=== PATIENT | male | born 1945 | race Caucasian/White ===

== ENCOUNTER 2016-12-21 18:15 | Inpatient (IN) | payer OTHER, BC ==
[~2016-12-21] VITALS: Ht 175.3 cm; Wt 73.8 kg
--- NOTE | ~2016-12-21 | O ---
[facility] [place] [address] OPERATIVE REPORT Name: SAVANNA TORRES Room #: 537-P ADM IN M.R.#: [id number] Admission: 12/21/16 Attend Phys: Danilo Hurtado MD Discharge: Date of : 41 Report #: [id number] THIS REPORT FOR: //name// CC: Jaxon Jc DATE OF SERVICE: 12/23/2016 PREOPERATIVE DIAGNOSIS: Left hip intertrochanteric hip fracture. POSTOPERATIVE DIAGNOSIS: Left hip intertrochanteric hip fracture. PROCEDURE: Left hip intramedullary nail. SURGEON: Jaxon Vazquez MD. COSTUME MISTRESS: KAMAR Reid. ANESTHESIA: General. DRAINS: None. TOURNIQUET TIME: Zero. ESTIMATED BLOOD LOSS: 20 mL. COMPLICATIONS: There were no complications. DESCRIPTION OF PROCEDURE: The patient brought to the operating room where he was placed under general anesthesia. Once under adequate general anesthesia, he was placed onto the fracture table. Once on the fracture table, his left lower extremity was then placed into traction. A reduction maneuver was then performed. X-ray was used to verify a satisfactory reduction and the left hip was then prepped and draped in sterile manner. A 2 cm incision proximal to the tip of the greater trochanter was then made. A curved cannulated awl was then used to enter the tip of the greater trochanter and subsequent to this, a guidewire for the intramedullary nail was then placed. An 11 mm Synthes trochanteric femoral nail was then placed down the shaft of the femur through a separate 2 cm incision utilizing the outrigger jig the guidewire and subsequently, the compression screw was placed across the fracture site. Excellent fixation was achieved. A transverse locking screw was then placed through the end of the nail. Excellent fixation and good alignment was then achieved. The wounds were irrigated copiously and closed with 2-0 Vicryl, subcutaneous tissues and jean for the skin. The wound was dressed with Xeroform, 4 x 4s, and sterile soft compressive dressing was placed. There were [facility] [address] [place] [address] OPERATIVE REPORT Name: SAVANNA TORRES Room #: 537-P [facility] IN M.R.#: [id number] Admission: 12/21/16 Attend Phys: Danilo Hurtado MD Discharge: Date of : 43 Report #: [id number] no tourniquets. There were no complications. KAMAR Reid was critical for the positioning and safe performance of the procedure. <ELECTRONICALLY SIGNED> By: Jaxon Vazquez MD 12/24/16 1323 1249 1303 Jaxon Vazquez MD /nt
--- NOTE | ~2016-12-21 | HC ---
[facility] [place] [address] CONSULTATION Name: SAVANNA TORRES Room #: 313-P [facility] IN M.R.#: [id number] Admission: 12/21/16 Attend Phys: Danilo Hurtado MD Discharge: Date of : 43 Report #: [id number] THIS REPORT FOR: //name// CC: Jaxon Jc CHIEF COMPLAINT: Left hip pain. HISTORY OF PRESENT ILLNESS: This is a 71-year-old gentleman who fell and landed on his hip at home while using a portable toilet. He complained of left lower extremity pain and shoulder pain. He apparently had a CVA approximately 9 months ago and lost the use of his left side. He still has normal sensation on his left side, however. He typically uses electric wheelchair to move. He apparently fell on Tuesday from a standing position. PAST MEDICAL HISTORY: Significant for the CVA, hypertension, hypercholesterolemia and diabetes mellitus. MEDICATIONS: Mirtazapine, metformin, Baclofen, ropinirole, enalapril maleate, rosuvastatin, calcium, cyanocobalamin and aspirin. ALLERGIES: None. SOCIAL HISTORY: Negative for alcohol use. REVIEW OF SYSTEMS: As above. PHYSICAL EXAMINATION: VITAL SIGNS: Notes a temperature of 36.5, pulse is 113, respiratory rate is 22, pulse ox to 98 and blood pressure is 111/73. EXTREMITIES: Examination of the patient's left lower extremity notes it is shortened and externally rotated. He has pain with any motion through his left lower extremity. Otherwise, neurovascularly intact. LABORATORY DATA: Laboratory studies note hemoglobin of 12.8 and an INR of 1.0. X-rays are reviewed, noting a left hip intertrochanteric hip fracture, which is displaced. IMPRESSION: Left hip intertrochanteric hip fracture. PLAN: Options were discussed at length with the patient. I will have to discuss with his as well possible intramedullary nail to the left hip. <ELECTRONICALLY SIGNED> By: Jaxon Vazquez MD 12/23/16 1105 0649 1028 Jaxon Vazquez MD /nt
--- NOTE | ~2016-12-21 | HC ---
[facility] [place] [address] CONSULTATION Name: SAVANNA TORRES Room #: 537-P [facility] IN M.R.#: [id number] Admission: 12/21/16 Attend Phys: Danilo Hurtado MD Discharge: 12/27/16 Date of : 43 Report #: [id number] THIS REPORT FOR: //name// CC: Jaxon Jc HISTORY OF PRESENT ILLNESS: The patient is a 71-year-old male who has a history of a prior hemorrhagic stroke approximately 9 months ago with residual dense left-sided weakness. He typically uses an electric wheelchair. He was able to transfer himself on and off the toilet and in and out of bed using a stand pivot transfer. The patient was performing a transfer off of a portable toilet when he unfortunately fell on to his plegic left side. He was admitted to [facility] and noted to have a left hip intertrochanteric fracture. He underwent intramedullary nailing on 12/23/2016. He is allowed weightbearing as tolerated. He has had some urinary retention with Prieto placement and starting Flomax. We are seeing him in rehabilitation medicine consultation. PAST MEDICAL HISTORY: Includes the prior stroke with dense left-sided weakness. He has a history of hypertension and diabetes mellitus type 2. MEDICATIONS: Please see the full medication listing. ALLERGIES: No known drug allergies. HABITS: Former tobacco user, quit less than one year ago. ETOH, 2 glasses of wine daily. 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 REVIEW OF SYSTEMS: Did not offer any current complaints of chest pain, shortness of breath, abdominal discomfort. He notes left lower extremity pain and indicate he does have good sensation of that left side. No other focal extremity pain complaints. PHYSICAL EXAMINATION: GENERAL: The patient is a 71-year-old white male, in no obvious distress. NEUROLOGIC: He is pleasant. Follows basic commands, conversants with tends to defer quite a bit of the conversation to his . Facies are symmetric. He might have a mild depressed left nasolabial fold. EOMs appear full. He has functional range of motion and strength of the right upper and right lower extremity without focal weakness. Left upper extremity reveal dense plegia of that left upper extremity. He has trace left elbow flexion. He appears to have some mild increased tone of that left upper extremity. Left lower extremity, hip incision with dressing. He has no volitional movement of that left lower extremity. He does; however, have good sensation of both upper and lower [facility] [address] [place] [address] CONSULTATION Name: TORRESSAVANNA Room #: 537-P DIS IN M.R.#: [id number] Admission: 12/21/16 Attend Phys: Danilo Hurtado MD Discharge: 12/27/16 Date of : 43 Report #: [id number] extremities to simultaneous stimulation. I could not detect any clonus at the left ankle. ASSESSMENT: A 71-year-old white male with the following problem list: 1. Left hip intertrochanteric fracture status post intramedullary nail 12/23/2016, allowed weightbearing as tolerated. 2. 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 3. Above cerebrovascular accident with chronic residual changes. 4. Urinary retention, starting Flomax. 5. Hypertension. 6. Diabetes mellitus type 2. PLAN: Therapy evaluations are underway. The patient is allowed weightbearing as tolerated on that left lower extremity. Goal would be to try to achieve independence with basic transfers, which he was doing previously. He appears motivated as far as working in his therapies. We will see how he does in therapy evaluations. He certainly may benefit from an acute in-hospital inpatient rehabilitation stay depending upon his progress. We will follow along with you. <ELECTRONICALLY SIGNED> By: Dayton Hernandez MD 01/03/17 1447 1427 2343 Dayton Hernandez MD /nt
[2016-12-21 18:15] VITALS: BP 111/73
[2016-12-21] MEDS ORDERED: REMERON15 MG PO (18:18)
[2016-12-21] MEDS ORDERED: LIORESAL 10 MG10 MG PO (18:19)
[2016-12-21] MEDS ORDERED: ROSUVASTATIN CA40 MG PO (18:19)
[2016-12-21] MEDS ORDERED: ENALAPRIL MALEA20 MG PO (18:19)
[2016-12-21] MEDS ORDERED: METFORMIN HCL1000 MG PO (18:19)
[2016-12-21] MEDS ORDERED: ROPINIROLE HCL0.5 MG PO (18:19)
[2016-12-21] MEDS ORDERED: VITAMIN B-12500 MCG PO (18:20)
[2016-12-21] MEDS ORDERED: ASPIR 8181 MG PO (18:20)
[2016-12-21 19:10] LABS: HEMOGLOBIN 12.8 gm/dL (14.0-18.0); MCH 31.6 pg (26.0-34.0); MCHC 34.5 g/dL (28.0-37.0); MCV 91.5 fL (80.0-100.0); RBC 4.05 mil/uL (4.50-6.00); WBC 19.8 thou/uL (4.0-11.0)
[2016-12-21 19:12] LABS: MANUAL DIFF YES
[2016-12-21 19:15] LABS: CALCIUM 9.6 mg/dL (8.5-10.1); CREATININE 1.3 mg/dL (0.6-1.3); POTASSIUM 4.3 mmol/L (3.5-5.1)
[2016-12-21 19:19] LABS: ALBUMIN 3.3 g/dL (3.4-5.0); TOTAL BILIRUBIN 0.8 mg/dL (<0.1-1.0); TOTAL PROTEIN 7.2 g/dL (6.4-8.2)
[2016-12-21 19:24] LABS: PROTIME 10.8 Seconds (9.3-11.4)
[2016-12-21 19:33] LABS: ICTOTEST (BILI CONFIRMATORY) Negative (Negative); URINE BILIRUBIN 1+ (Negative); URINE BLOOD TRACE (Negative); URINE COLOR YELLOW; URINE GLUCOSE-RANDOM* NEGATIVE (Negative); URINE KETONES TRACE (Negative); URINE LEUKOCYTES-REFLEX NEGATIVE (Negative); URINE PROTEIN (DIPSTICK) 2+ (Negative); URINE SPECIFIC GRAVITY 1.025 (1.003-1.035); URINE UROBILINOGEN 0.2 E.U./dl (0.2-1.0)
[2016-12-21 19:38] LABS: ABSOLUTE NEUTROPHILS 14.5 thou/uL (1.4-8.2); TOTAL CELL COUNT 100
[2016-12-21 19:39] LABS: LARGE PLATELETS FEW
[2016-12-21 19:40] LABS: PLATELET COUNT 134 thou/uL (150-400); PLATELET ESTIMATE SLIGHTLY DECREASED
[2016-12-21 19:43] LABS: CRYSTALS None Seen /LPF (None Seen); SQUAMOUS 0-3 Few /LPF (0-3)
[2016-12-21 19:44] LABS: HYALINE CASTS 0-3 Few /LPF (None Seen); URINE RBC 0-2 Rare /HPF (0-2); URINE WBC-REFLEX None Seen /HPF (0-5)
[2016-12-21 23:19] VITALS: BP 96/50
[2016-12-22] VITALS: BP 96/60
[2016-12-22 04:40] VITALS: BP 96/60
[2016-12-22 06:07] LABS: HEMATOCRIT 32.9 % (42.0-52.0); HEMOGLOBIN 11.1 gm/dL (14.0-18.0); MCH 31.5 pg (26.0-34.0); MCHC 33.6 g/dL (28.0-37.0); MCV 93.6 fL (80.0-100.0); RBC 3.52 mil/uL (4.50-6.00); RDW 13.1 % (10.5-14.5); WBC 10.7 thou/uL (4.0-11.0)
[2016-12-22 06:26] LABS: CREATININE 1.1 mg/dL (0.6-1.3); POTASSIUM 3.9 mmol/L (3.5-5.1)
[2016-12-22 07:46] VITALS: BP 91/60
[2016-12-22 10:40] LABS: URINE BILIRUBIN NEGATIVE (Negative); URINE BLOOD NEGATIVE (Negative); URINE COLOR YELLOW; URINE GLUCOSE-RANDOM* NEGATIVE (Negative); URINE KETONES TRACE (Negative); URINE LEUKOCYTES-REFLEX NEGATIVE (Negative); URINE PROTEIN (DIPSTICK) 1+ (Negative); URINE UROBILINOGEN 0.2 E.U./dl (0.2-1.0)
[2016-12-22 10:44] LABS: SQUAMOUS None Seen /LPF (0-3); URINE RBC None Seen /HPF (0-2); URINE WBC-REFLEX 0-5 Rare /HPF (0-5)
[2016-12-22 10:45] LABS: CASTS None Seen /LPF (None Seen); CRYSTALS None Seen /LPF (None Seen)
[2016-12-22 13:58] VITALS: BP 88/57
[2016-12-22 16:43] VITALS: BP 101/69
[2016-12-22 20:30] VITALS: BP 100/63
[2016-12-23] VITALS (8 sets, daily range): BP systolic 95–141; BP diastolic 58–86
[2016-12-23 05:07] LABS: BASOPHILS 0.5 % (0.0-2.0); EOSINOPHILS 9.9 % (0.0-3.0); HEMATOCRIT 30.3 % (42.0-52.0); HEMOGLOBIN 10.5 gm/dL (14.0-18.0); LYMPHOCYTES 18.5 % (24.0-44.0); MCHC 34.6 g/dL (28.0-37.0); MCV 92.4 fL (80.0-100.0); MONOCYTES 8.3 % (1.0-8.0); PLATELET COUNT 96 thou/uL (150-400); POLYS 62.8 % (36.0-66.0); RBC 3.27 mil/uL (4.50-6.00); RDW 12.8 % (10.5-14.5); WBC 7.9 thou/uL (4.0-11.0)
[2016-12-23 05:13] LABS: MANUAL DIFF NO
[2016-12-23 05:20] LABS: CALCIUM 8.6 mg/dL (8.5-10.1); POTASSIUM 3.8 mmol/L (3.5-5.1)
[2016-12-24 00:37] VITALS: BP 104/53
[2016-12-24 03:00] VITALS: BP 107/59
[2016-12-24 08:10] VITALS: BP 108/67
[2016-12-24 16:52] VITALS: BP 135/82
[2016-12-24 20:22] VITALS: BP 118/77
[2016-12-24 20:30] VITALS: BP 118/77
[2016-12-25 05:22] LABS: ABSOLUTE NEUTROPHILS 5.5 thou/uL (1.4-8.2); BASOPHILS 0.6 % (0.0-2.0); EOSINOPHILS 8.3 % (0.0-3.0); HEMATOCRIT 30.4 % (42.0-52.0); HEMOGLOBIN 10.3 gm/dL (14.0-18.0); LYMPHOCYTES 20.3 % (24.0-44.0); MCH 31.5 pg (26.0-34.0); MCHC 33.9 g/dL (28.0-37.0); MCV 92.8 fL (80.0-100.0); MONOCYTES 9.4 % (1.0-8.0); PLATELET COUNT 134 thou/uL (150-400); POLYS 61.4 % (36.0-66.0); RBC 3.27 mil/uL (4.50-6.00); RDW 12.5 % (10.5-14.5); WBC 8.9 thou/uL (4.0-11.0)
[2016-12-25 05:30] LABS: MANUAL DIFF NO
[2016-12-25 05:34] LABS: CALCIUM 8.3 mg/dL (8.5-10.1)
[2016-12-25 06:33] VITALS: BP 113/73
[2016-12-25 07:56] VITALS: BP 137/73
[2016-12-25 15:46] VITALS: BP 157/79
[2016-12-25 19:48] VITALS: BP 128/81
[2016-12-26 07:40] VITALS: BP 134/83
[2016-12-26 16:45] VITALS: BP 125/71
[2016-12-26 19:41] VITALS: BP 109/67
[2016-12-27 03:08] VITALS: BP 136/84
[2016-12-27 07:27] VITALS: BP 134/72
[2016-12-27] MEDS ORDERED: COLACE 100 MG100 MG PO (10:11)
[2016-12-27] MEDS ORDERED: HYDROCODONE-AP1 EAC6 PO (10:11)
[2016-12-27] MEDS ORDERED: FLOMAX0.4 MG PO (10:11)
== END 2016-12-27 16:51 | DRG 480 ==
LOC: ER 18:15 → EROBS 21:11 → 3N 21:11 → 5S 12-23 14:05
PROVIDERS: Emergency Medicine; Internal Medicine Endocrinology, Diabetes & Metabolism; Nurse Practitioner Acute Care
PROC: 0QS736Z Reposition Left Upper Femur with Intramedullary Internal Fixation Device, Percutaneous Approach (ICD-10-PCS; principal; 2016-12-23)
DX: S72.142A Displaced intertrochanteric fracture of left femur, initial encounter for closed fracture (principal); E43 Unspecified severe protein-calorie malnutrition; I69.954 Hemiplegia and hemiparesis following unspecified cerebrovascular disease affecting left non-dominant side; I10 Essential (primary) hypertension; E11.9 Type 2 diabetes mellitus without complications; E78.00 Pure hypercholesterolemia, unspecified; R33.9 Retention of urine, unspecified; D72.829 Elevated white blood cell count, unspecified; K59.00 Constipation, unspecified; E78.5 Hyperlipidemia, unspecified; Z68.24 Body mass index [BMI] 24.0-24.9, adult; Z87.891 Personal history of nicotine dependence; Z82.49 Family history of ischemic heart disease and other diseases of the circulatory system; W18.39XA Other fall on same level, initial encounter; Y93.89 Activity, other specified; Y92.89 Other specified places as the place of occurrence of the external cause; Y99.8 Other external cause status
CPT/HCPCS: 10089; 10096; 10785; 50010; 50101; 50386; 51412; 51538; 51817; 52146; 55430; 56524; 57092; 62110; 62900; 70005

== ENCOUNTER 2016-12-27 13:13 | Inpatient (IN) | payer OTHER, BC ==
[~2016-12-27] VITALS: Ht 175.3 cm; Wt 74.5 kg
--- NOTE | ~2016-12-27 | PLAN ---
[facility] [place] [address] REHAB UNIT PLAN OF CARE Name: SAVANNA TORRES Room #: 511-P ADM IN M.R.#: [id number] Admission: 12/27/16 Attend Phys: Dayton Hernandez MD Discharge: Date of : 43 Report #: [id number] THIS REPORT FOR: //name// CC: Dayton Jc DATE OF SERVICE: 12/29/2016 HISTORY OF PRESENT ILLNESS: The patient is seen back today in followup. He is in no distress. Last recorded temperature 36.9, pulse 95, respirations 14, blood pressure 124/81. The patient is in no distress. He is sleepy. He has no calf swelling. Bed to wheelchair transfers are max assist. Bed mobility is mod assist. He has been dependent for donning his underwear and socks and hose. ASSESSMENT: 1. Left hip intertrochanteric fracture status post intramedullary nail 12/23/2016, weightbearing as tolerated. 2. Premorbid dense left hemiplegia from a prior stroke approximately 9 months ago. 3. Prior CVA with chronic residual left-sided weakness. 4. Urinary retention with indwelling Prieto catheter, was started on Flomax. 5. Hypertension. 6. Diabetes mellitus. PLAN: The overall plan of care is based on the preadmission screen, post-admission physician evaluation and information garnered from therapy assessments. 1. Estimated length of stay is probably at least 2-3 weeks, potentially longer as warranted pending his progress. 2. Medical prognosis is reasonably good. 3. Anticipated interventions include the interdisciplinary acute inpatient rehabilitation program with PT and OT. Speech therapy is involved as well as he does have some dysphagia, would anticipate most of this therapy to be PT and OT, however, as we progress forward. He also has rehab nursing assisting regarding medication management, skin care prophylaxis, bowel and bladder issues and nursing education. We will have the business sales consultant physicians following as noted. 4. Anticipated functional outcomes would be for the patient to improve as far as basic transfers and ADLs to try to get back as close as possible to his prior functional levels. 5. Discharge destination would be back to the home setting with his . 6. Expected therapy by discipline includes PT, OT and speech with PT and OT 1 to 1-1/2 hours per day, speech is 1/2 to 1 hour per day each five [place] [address] REHAB UNIT PLAN OF CARE Name: SAVANNA TORRES Room #: 511-P [facility] IN ..#: [id number] Admission: 12/27/16 Attend Phys: Dayton Hernandez MD Discharge: Date of : 43 Report #: [id number] with the anticipation that speech therapy will likely taper off and be increased by more PT and OT. <ELECTRONICALLY SIGNED> By: Dayton Hernandez MD 01/03/17 1455 0800 1058 Dayton Hernandez MD /darryn
--- NOTE | ~2016-12-27 | EEG ---
[facility] [place] [address] ELECTROENCEPHALOGRAM Name: SAVANNA TORRES Room #: 511-P ADM IN M.R.#: [id number] Admission: 12/27/16 Attend Phys: Dayton Hernandez MD Discharge: Date of : 43 Report #: [id number] THIS REPORT FOR: //name// CC: Dayton Jc DATE OF SERVICE: 01/04/2017 This patient is being evaluated for left facial numbness and has a history of CVA. EEG was done by placing the electrodes by standard 10-20 system of electrode placement. Both referential and sequential montages were used for recording. Background activity in this patient's EEG is about 9-10 Hz and 40 microvolt. This is a symmetrical activity. This patient becomes drowsy and goes to sleep and that is associated with bilateral slowing and a few vertex sharp waves. Photic stimulation was unremarkable. Throughout the record, no active epileptiform activity was noticed. IMPRESSION: This patient's EEG does not demonstrate any clear-cut electrophysiological abnormality. There is some nonspecific intermixed theta range slowing on both sides. That is a nonspecific abnormalities, which can occur with drowsiness, effect of psychotropic medication, etc. Finding is mild. Thank you very much for this referral. <ELECTRONICALLY SIGNED> By: Blaze Pittman MD 01/07/17 1020 1743 1831 Blaze Pittman MD /darryn
--- NOTE | ~2016-12-27 | EKG ---
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 01/06/17 0732 8 8 Rafael Charles MD, [facility] /EPI
--- NOTE | ~2016-12-27 | H ---
[facility] [place] [address] HISTORY AND PHYSICAL Name: SAVANNA TORRES Room #: 511-P [facility] IN M.R.#: [id number] Admission: 12/27/16 Attend Phys: Dayton Hernandez MD Discharge: Date of : 43 Report #: [id number] THIS REPORT FOR: //name// CC: Dayton Jc DATE OF SERVICE: 12/28/2016 HISTORY OF PRESENT ILLNESS: The patient is a 71-year-old white male with history of prior hemorrhagic stroke approximately 9 months ago with residual dense left-sided weakness. He typically utilizes an electrical wheelchair. He was able to transfer himself on and off the toilet and in and out of bed using a stand pivot transfer. He was performing a transfer off of a portable toilet when he unfortunately fell on to his plegic left side. He was admitted to [facility] and noted to have a left hip intertrochanteric fracture. He underwent intramedullary nailing on 12/23/2016. He is allowed weightbearing as tolerated. He had some urinary retention with Prieto catheter placement and starting Flomax. His constipation resolved on the bowel regimen. He was felt to be ready and was transferred for acute in-hospital inpatient rehabilitation. PAST MEDICAL HISTORY: Includes the prior stroke with dense left-sided weakness. He has a history of hypertension and diabetes mellitus type 2. MEDICATIONS: Please see the full medication listing. ALLERGIES: No known drug allergies. HABITS: Former tobacco user, quit less than one year ago. ETOH, 2 glasses of wine daily. 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 REVIEW OF SYSTEMS: No current complaints of chest pain, shortness of breath, abdominal discomfort. He has some left lower extremity discomfort as expected. No other focal extremity pain complaints. PHYSICAL EXAMINATION: GENERAL: A 71-year-old white male in no obvious distress. VITAL SIGNS: Last recorded temperature 36.8, pulse 97, respirations 14, blood pressure 112/74. The patient was seen earlier this morning. He has the indwelling Prieto catheter. Left hip is dressed. Sleepy, but easily arouses. HEENT: Facies appeared to be symmetric. Appeared to be benign. He does have a mild depressed left nasolabial fold. CHEST: Sounded clear to auscultation. CARDIOVASCULAR: Regular rate and rhythm. [address] [address] HISTORY AND PHYSICAL Name: SAVANNA TORRES Room #: 511-P [facility] IN ..#: [id number] Admission: 12/27/16 Attend Phys: Dayton Hernandez MD Discharge: Date of : 43 Report #: [id number] ABDOMEN: Bowel sounds positive, nontender. NEUROLOGIC: He is a slender male. EXTREMITIES: He has functional range of motion and strength of the right upper and right lower extremity. Left upper extremity reveals dense plegia with trace left elbow flexion. He appears to have some mild increased tone of the left upper extremity. Left lower extremity with hip incision with dressing in place. No volitional movement of the left lower extremity. I did not test his sensation again, he did have good simultaneous sensation just stimulation when I previously saw him. Tone appears unchanged of the left ankle. There was no clonus. He is needing assistance with basic functional mobility, skills and ADLs. ASSESSMENT: A 71-year-old white male with the following problem list: 1. Left hip intertrochanteric fracture, status post intramedullary nail on 12/23/2016, weightbearing as tolerated. 2. Premorbid dense left hemiplegia from a prior stroke approximately 9 months ago. 3. Prior cerebrovascular accident with chronic residual left-sided weakness. 4. Urinary retention with indwelling Prieto catheter, was started on Flomax. 5. Hypertension. 6. Diabetes mellitus type 2. PLAN: The patient is admitted for an acute in-hospital inpatient rehabilitation stay. From a postadmission physician evaluation perspective, there are no relevant changes since the preadmission screening. Please see the above review of prior and current medical and functional conditions and comorbidities. Please see the patient's prior and current functional status. As far as risk of complications, the patient does have the multiple medical comorbidities as noted above. Initial plan of care involves the interdisciplinary acute inpatient rehabilitation program with the goal of maximizing the patient's functional independence, so that he can hopefully return back to his prior living situation. The goal would be for him to become modified independent with basic transfers, so his could again care for him in the home setting. Prognosis is reasonably good with estimated length of stay probably at least a couple weeks to possibly 3 weeks depending upon his progress and gains. Potential barriers would include his above noted medical comorbidities and decreased functional status. The patient meets diagnostic criteria for an acute in-hospital inpatient rehabilitation stay. He meets medical necessity criteria. He does have the [facility] [address] [place] [address] HISTORY AND PHYSICAL Name: SAVANNA TORRES Room #: 511-P ADM IN M.R.#: [id number] Admission: 12/27/16 Attend Phys: Dayton Hernandez MD Discharge: Date of : 43 Report #: [id number] tolerance for an acute in-hospital inpatient rehabilitation stay and he has appropriate discharge goals back to the home setting. <ELECTRONICALLY SIGNED> By: Dayton Hernandez MD 01/03/17 1447 0947 1105 Dayton Hernandez MD /nt
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
--- NOTE | ~2016-12-27 | EEG ---
[facility] [address] [place] [address] ELECTROENCEPHALOGRAM Name: SAVANNA TORRES Room #: 511-P [facility] IN M.R.#: [id number] Admission: 12/27/16 Attend Phys: Dayton Hernandez MD Discharge: Date of : 41 Report #: [id number] THIS REPORT FOR: //name// CC: Dayton Jc DATE OF SERVICE: 01/06/2017 This patient is being evaluated for the possibility of seizure. The EEG was done by placing the electrodes by standard 10-20 system of electrode placement. Both referential and sequential montages were used for recording. Background activity in this patient's EEG is about 10 Hz and 40 microvolts. It is a symmetrical activity. The patient goes to sleep, and that is associated with bilateral slowing, vertex sharp waves, as well as sleep spindles which were symmetrical. Photic stimulation was unremarkable. Throughout the record, no active epileptiform activity was noticed. IMPRESSION: This patient's EEG is within normal limits. No active epileptiform activity was noticed during this record. It might be mentioned that EEG can be normal in a patient with a seizure disorder. Thank you very much for this referral. <ELECTRONICALLY SIGNED> By: Blaze Pittman MD 01/07/17 1020 1849 39 Blaze Pittman MD /nt
[~2016-12-27 13:13] MED LIST: ASPIR 8181 MG PO; COLACE 100 MG100 MG PO; ENALAPRIL MALEA20 MG PO; FLOMAX0.4 MG PO; HYDROCODONE-AP1 EAC6 PO; LIORESAL 10 MG10 MG PO; METFORMIN HCL1000 MG PO; REMERON15 MG PO; ROPINIROLE HCL0.5 MG PO; ROSUVASTATIN CA40 MG PO; VITAMIN B-12500 MCG PO
[2016-12-27 16:56] VITALS: BP 120/75
[2016-12-28 03:50] VITALS: BP 142/81
[2016-12-28 04:21] LABS: HEMATOCRIT 28.3 % (42.0-52.0); HEMOGLOBIN 9.8 gm/dL (14.0-18.0); MCH 31.9 pg (26.0-34.0); MCHC 34.6 g/dL (28.0-37.0); MCV 92.1 fL (80.0-100.0); RBC 3.08 mil/uL (4.50-6.00)
[2016-12-28 04:32] LABS: CALCIUM 8.5 mg/dL (8.5-10.1); CREATININE 0.9 mg/dL (0.6-1.3); POTASSIUM 3.9 mmol/L (3.5-5.1)
[2016-12-28 07:42] VITALS: BP 112/74
[2016-12-28 14:50] VITALS: BP 107/69
[2016-12-28 16:00] VITALS: BP 100/50
[2016-12-28 20:00] VITALS: BP 110/60
[2016-12-29 04:27] VITALS: BP 124/81
[2016-12-29 08:33] VITALS: BP 123/77
[2016-12-29 15:33] VITALS: BP 108/65
[2016-12-30 03:38] VITALS: BP 129/76
[2016-12-30 07:48] VITALS: BP 114/78
[2016-12-30 16:12] VITALS: BP 118/64
[2016-12-31 06:30] VITALS: BP 131/64
[2016-12-31 16:00] VITALS: BP 125/79
[2017-01-01 06:35] VITALS: BP 119/71
[2017-01-01 08:25] VITALS: BP 122/54
[2017-01-01 16:00] VITALS: BP 123/62
[2017-01-02 05:39] VITALS: BP 119/49
[2017-01-02 13:49] VITALS: BP 119/60
[2017-01-02 16:00] VITALS: BP 96/65
[2017-01-03 04:00] VITALS: BP 121/70
[2017-01-03 05:43] LABS: HEMOGLOBIN 9.5 gm/dL (14.0-18.0); MCH 31.8 pg (26.0-34.0); MCHC 33.9 g/dL (28.0-37.0); RBC 2.98 mil/uL (4.50-6.00); RDW 14.3 % (10.5-14.5); WBC 7.6 thou/uL (4.0-11.0)
[2017-01-03 16:00] VITALS: BP 106/69
[2017-01-04 05:17] VITALS: BP 129/85
[2017-01-04 08:20] VITALS: BP 140/88
[2017-01-04 09:08] LABS: ABSOLUTE NEUTROPHILS 3.5 thou/uL (1.4-8.2); BASOPHILS 1.2 % (0.0-2.0); EOSINOPHILS 17.7 % (0.0-3.0); HEMATOCRIT 30.3 % (42.0-52.0); HEMOGLOBIN 10.3 gm/dL (14.0-18.0); MCH 31.6 pg (26.0-34.0); MCHC 33.9 g/dL (28.0-37.0); MONOCYTES 6.3 % (1.0-8.0); PLATELET COUNT 331 thou/uL (150-400); POLYS 50.8 % (36.0-66.0); RBC 3.26 mil/uL (4.50-6.00); RDW 13.9 % (10.5-14.5); WBC 6.8 thou/uL (4.0-11.0)
[2017-01-04 09:09] LABS: MANUAL DIFF NO
[2017-01-04 09:22] LABS: CALCIUM 9.5 mg/dL (8.5-10.1); CREATININE 0.9 mg/dL (0.7-1.3); POTASSIUM 4.2 mmol/L (3.5-5.1)
[2017-01-04 09:23] LABS: APTT 23.8 Seconds (24.5-32.8); FIBRINOGEN 417.8 mg/dL (210-360); INR 1.1; PROTIME 11.4 Seconds (9.3-11.4)
[2017-01-04 09:27] LABS: ALBUMIN 2.5 g/dL (3.4-5.0); TOTAL BILIRUBIN 0.5 mg/dL (<0.1-1.0); TOTAL PROTEIN 6.2 g/dL (6.4-8.2)
[2017-01-04 09:53] LABS: URINE BILIRUBIN NEGATIVE (Negative); URINE BLOOD TRACE (Negative); URINE COLOR YELLOW; URINE GLUCOSE-RANDOM* NEGATIVE (Negative); URINE KETONES NEGATIVE (Negative); URINE LEUKOCYTES-REFLEX NEGATIVE (Negative); URINE PROTEIN (DIPSTICK) NEGATIVE (Negative); URINE SPECIFIC GRAVITY 1.015 (1.003-1.035); URINE UROBILINOGEN 0.2 E.U./dl (0.2-1.0)
[2017-01-04 15:48] VITALS: BP 110/69
[2017-01-05 05:43] VITALS: BP 126/68
[2017-01-05 07:54] VITALS: BP 153/66
[2017-01-05 11:19] VITALS: BP 134/78
[2017-01-05 15:57] VITALS: BP 144/75
[2017-01-06 15:54] VITALS: BP 95/59
[2017-01-07 05:57] VITALS: BP 121/77
[2017-01-07 15:36] VITALS: BP 114/74
[2017-01-08 05:02] VITALS: BP 116/74
[2017-01-08 16:00] VITALS: BP 103/69
[2017-01-09 05:06] VITALS: BP 126/67
[2017-01-09 09:31] VITALS: BP 114/70
[2017-01-09 15:35] VITALS: BP 115/75
[2017-01-10 05:43] VITALS: BP 121/81
[2017-01-10 08:00] VITALS: BP 118/77
[2017-01-10 16:00] VITALS: BP 91/64
[2017-01-11 03:13] VITALS: BP 127/70
[2017-01-11 07:56] VITALS: BP 128/68
[2017-01-12 03:13] VITALS: BP 124/74
[2017-01-12 08:24] VITALS: BP 125/67
[2017-01-12 09:16] VITALS: BP 97/60
[2017-01-12] MEDS ORDERED: OXYCODONE HCL 55 MG PO (11:04)
[2017-01-12] MEDS ORDERED: GABAPENTIN 100100 MG PO (11:05)
== END 2017-01-12 13:32 | DRG 535 ==
PROVIDERS: Hospitalist; Physical Medicine & Rehabilitation; Psychiatry & Neurology Neurology
DX: S72.142A Displaced intertrochanteric fracture of left femur, initial encounter for closed fracture (principal); E43 Unspecified severe protein-calorie malnutrition; I69.951 Hemiplegia and hemiparesis following unspecified cerebrovascular disease affecting right dominant side; I10 Essential (primary) hypertension; R33.9 Retention of urine, unspecified; E11.9 Type 2 diabetes mellitus without complications; G31.84 Mild cognitive impairment of uncertain or unknown etiology; F41.9 Anxiety disorder, unspecified; K59.00 Constipation, unspecified; M17.12 Unilateral primary osteoarthritis, left knee; E78.5 Hyperlipidemia, unspecified; N40.0 Benign prostatic hyperplasia without lower urinary tract symptoms; R20.0 Anesthesia of skin; W18.39XA Other fall on same level, initial encounter; Z87.891 Personal history of nicotine dependence; Z79.82 Long term (current) use of aspirin; Z79.899 Other long term (current) drug therapy; Y93.89 Activity, other specified; Y92.89 Other specified places as the place of occurrence of the external cause; Y99.8 Other external cause status; Z82.49 Family history of ischemic heart disease and other diseases of the circulatory system
CPT/HCPCS: 10112

== ENCOUNTER 2017-09-24 12:10 | Inpatient (IN) | payer OTHER ==
[~2017-09-24] VITALS: Ht 175.3 cm; Wt 59.0 kg
--- NOTE | ~2017-09-24 | EKG ---
[address] [place] [address] ELECTROCARDIOGRAM REPORT Name: SAVANNA TORRES Room #: 411-P [facility] M.R.#: [id number] Admission: 09/24/17 Attend Phys: Vanesa Gallegos Discharge: Date of : 43 Report #: [id number] THIS REPORT FOR: //name// [facility] ED Test Date: 2017-09-24 Test Time: 12:20:44 Pat Name: SAVANNA TORRES Department: Room: 411 P Gender: M Director Information Security: CHAPARRITA : 1945 Requested By: Lucy Tarango Order Number: [id number] MD: Nicholas Robles Measurements Intervals [place] Rate: 68 P: -62 IA: 244 QRS: -83 QRSD: 140 T: 70 QT: 447 QTc: 476 Interpretive Statements Sinus or ectopic atrial rhythm Prolonged IA interval RBBB and LAFB Compared to ECG 01/04/2017 08:19:34 No change Electronically Signed On 09-25-2017 9:42:52 LAMINATION MACHINE OPERATOR by Nicholas Robles [email or web address] <ELECTRONICALLY SIGNED> By: Nicholas Robles MD 09/25/17 0942 1220 1220 Nicholas Robles MD /KARISHMA
[~2017-09-24 12:10] MED LIST changes: +GABAPENTIN 100100 MG PO; +OXYCODONE HCL 55 MG PO
[2017-09-24 12:12] VITALS: BP 99/64
[2017-09-24] MEDS ORDERED: BENICAR20 MG PO (12:22)
[2017-09-24] MEDS ORDERED: TYLENOL325 MG PO (12:23)
[2017-09-24] MEDS ORDERED: VALPROIC ACID250 MG PO (12:25)
[2017-09-24] MEDS ORDERED: PROZAC10 MG PO (12:27)
[2017-09-24 13:32] LABS: ABSOLUTE NEUTROPHILS 5.9 thou/uL (1.4-8.2); BASOPHILS 0.5 % (0.0-2.0); EOSINOPHILS 2.9 % (0.0-3.0); HEMATOCRIT 41.5 % (42.0-52.0); HEMOGLOBIN 14.3 gm/dL (14.0-18.0); LYMPHOCYTES 17.3 % (24.0-44.0); MCH 32.2 pg (26.0-34.0); MCHC 34.3 g/dL (28.0-37.0); MCV 93.8 fL (80.0-100.0); MONOCYTES 10.5 % (1.0-8.0); POLYS 68.8 % (36.0-66.0); RBC 4.43 mil/uL (4.50-6.00); RDW 14.7 % (10.5-14.5); WBC 8.5 thou/uL (4.0-11.0)
[2017-09-24 13:40] LABS: CALCIUM 9.5 mg/dL (8.5-10.1); CREATININE 1.3 mg/dL (0.7-1.3); MAGNESIUM 2.3 mg/dL (1.8-2.4); POTASSIUM 4.3 mmol/L (3.5-5.1)
[2017-09-24 13:53] LABS: PLATELET COUNT 85 thou/uL (150-400)
[2017-09-24 15:13] LABS: URINE BILIRUBIN 1+ (Negative); URINE BLOOD 3+ (Negative); URINE CLARITY CLEAR; URINE COLOR YELLOW; URINE GLUCOSE-RANDOM* NEGATIVE (Negative); URINE KETONES NEGATIVE (Negative); URINE LEUKOCYTES-REFLEX NEGATIVE (Negative); URINE NITRITE-REFLEX NEGATIVE (Negative); URINE PROTEIN (DIPSTICK) 2+ (Negative); URINE SPECIFIC GRAVITY 1.025 (1.005-1.035)
[2017-09-24 15:15] LABS: ICTOTEST (BILI CONFIRMATORY) Negative (Negative)
[2017-09-24 15:20] LABS: HYALINE CASTS 0-3 Few /LPF (None Seen); SQUAMOUS None Seen /LPF (0-3)
[2017-09-24 15:21] LABS: AMORPHOUS URATES Moderate /LPF (None Seen); BACTERIA-REFLEX 1-9 Few /HPF (None Seen); URINE WBC-REFLEX None Seen /HPF (0-5)
[2017-09-24 16:51] VITALS: BP 92/58
[2017-09-24 17:20] VITALS: BP 99/66
[2017-09-24 17:33] VITALS: BP 98/57
[2017-09-24 20:00] VITALS: BP 100/69
[2017-09-25 04:00] VITALS: BP 91/60
[2017-09-25 08:00] VITALS: BP 93/62
[2017-09-25 16:18] VITALS: BP 85/49
[2017-09-25 21:20] VITALS: BP 90/60
[2017-09-26 05:48] VITALS: BP 96/64
[2017-09-26 09:43] VITALS: BP 88/53
[2017-09-26 20:29] VITALS: BP 100/58
[2017-09-27 03:15] VITALS: BP 110/68
[2017-09-27 08:21] VITALS: BP 114/65
[2017-09-27 12:19] LABS: TSH 2.237 uIU/mL (0.358-3.740)
[2017-09-27 16:56] VITALS: BP 100/67
[2017-09-27 19:15] VITALS: BP 115/67
[2017-09-28 04:10] VITALS: BP 105/70
[2017-09-28 08:00] VITALS: BP 132/84
[2017-09-28 12:29] LABS: ALBUMIN 1.8 g/dL (3.4-5.0); CALCIUM 8.3 mg/dL (8.5-10.1); CREATININE 0.7 mg/dL (0.7-1.3); MAGNESIUM 1.6 mg/dL (1.8-2.4); POTASSIUM 4.2 mmol/L (3.5-5.1); TOTAL BILIRUBIN 0.2 mg/dL (<0.1-1.0); TOTAL PROTEIN 4.1 g/dL (6.4-8.2)
[2017-09-28 14:22] LABS: HEMATOCRIT 35.5 % (42.0-52.0); MCH 32.5 pg (26.0-34.0); MCHC 33.9 g/dL (28.0-37.0); MCV 95.9 fL (80.0-100.0); RBC 3.7 mil/uL (4.50-6.00); RDW 15.3 % (10.5-14.5); WBC 5.3 thou/uL (4.0-11.0)
[2017-09-28 16:00] VITALS: BP 95/59
[2017-09-28 20:00] VITALS: BP 106/70
[2017-09-29 04:31] VITALS: BP 139/81
[2017-09-29 08:53] VITALS: BP 120/76
[2017-09-29 10:47] LABS: BASOPHILS 0.7 % (0.0-2.0); EOSINOPHILS 7.5 % (0.0-3.0); HEMOGLOBIN 11.9 gm/dL (14.0-18.0); LYMPHOCYTES 26.7 % (24.0-44.0); MCH 32.8 pg (26.0-34.0); MCHC 34.1 g/dL (28.0-37.0); MONOCYTES 8.6 % (1.0-8.0); POLYS 56.5 % (36.0-66.0); RBC 3.64 mil/uL (4.50-6.00); RDW 15.6 % (10.5-14.5); WBC 5.3 thou/uL (4.0-11.0)
[2017-09-29 10:49] LABS: CALCIUM 8.5 mg/dL (8.5-10.1); CREATININE 0.7 mg/dL (0.7-1.3); MAGNESIUM 1.9 mg/dL (1.8-2.4); POTASSIUM 3.8 mmol/L (3.5-5.1)
[2017-09-29 10:51] LABS: PLATELET COUNT 85 thou/uL (150-400)
[2017-09-29 17:12] VITALS: BP 109/69
[2017-09-29 20:00] VITALS: BP 117/76
[2017-09-30 04:00] VITALS: BP 132/83
[2017-09-30 08:00] VITALS: BP 138/86
== END 2017-09-30 16:20 | DRG 689 ==
LOC: ER 12:10 → EROBS 16:40 → 4N 17:22
PROVIDERS: Emergency Medicine; Family Medicine; Registered Nurse
DX: N39.0 Urinary tract infection, site not specified (principal); E43 Unspecified severe protein-calorie malnutrition; I69.354 Hemiplegia and hemiparesis following cerebral infarction affecting left non-dominant side; Z68.1 Body mass index [BMI] 19.9 or less, adult; E86.0 Dehydration; M62.84 Sarcopenia; R62.7 Adult failure to thrive; E78.00 Pure hypercholesterolemia, unspecified; I10 Essential (primary) hypertension; E11.9 Type 2 diabetes mellitus without complications; F32.9 Major depressive disorder, single episode, unspecified; I95.9 Hypotension, unspecified; D69.6 Thrombocytopenia, unspecified; R74.0 Nonspecific elevation of levels of transaminase and lactic acid dehydrogenase [LDH]; Z87.81 Personal history of (healed) traumatic fracture; Z87.891 Personal history of nicotine dependence; Z79.899 Other long term (current) drug therapy; Z82.49 Family history of ischemic heart disease and other diseases of the circulatory system

== ENCOUNTER 2019-05-30 00:01 | Emergency (ER) | payer OTHER ==
[~2019-05-30] VITALS: Ht 175.3 cm; Wt 86.6 kg
[~2019-05-30 00:01] MED LIST changes: +BENICAR20 MG PO; +PROZAC10 MG PO; +TYLENOL325 MG PO; +VALPROIC ACID250 MG PO
[2019-05-30] MEDS ORDERED: COZAAR 25 MG TA25 M1 PO (00:48)
[2019-05-30] MEDS ORDERED: ARTIFICIAL TEAR15 M6 OPHTHALMIC (00:50)
[2019-05-30] MEDS ORDERED: VICKS VAPORUB O50 GM EPIDURAL (00:51)
[2019-05-30] MEDS ORDERED: MUCINEX600 MG PO (00:58)
[2019-05-30] MEDS ORDERED: CLARITIN10 MG PO (00:59)
[2019-05-30] MEDS ORDERED: FLONASE 0.05%50 MCG NASAL (01:00)
[2019-05-30] MEDS ORDERED: IBUPROFEN 200200 M1 PORT (01:15)
[2019-05-30] MEDS ORDERED: VITAMIN B-12500 MCG PO (01:15)
[2019-05-30] MEDS ORDERED: HURRICAINE TOP (01:17)
[2019-05-30] MEDS ORDERED: DOXYCYCLINE 10100 MG PO (01:18)
[2019-05-30 03:43] VITALS: BP 127/85
== END 2019-05-30 03:44 | disposition home or self-care (01) ==
LOC: ER 00:01
DX: S70.02XA Contusion of left hip, initial encounter (principal); S40.012A Contusion of left shoulder, initial encounter; R60.9 Edema, unspecified; E78.00 Pure hypercholesterolemia, unspecified; I10 Essential (primary) hypertension; E11.9 Type 2 diabetes mellitus without complications; Z86.73 Personal history of transient ischemic attack (TIA), and cerebral infarction without residual deficits; Z87.891 Personal history of nicotine dependence; W01.0XXA Fall on same level from slipping, tripping and stumbling without subsequent striking against object, initial encounter; Y93.89 Activity, other specified; Y92.10 Unspecified residential institution as the place of occurrence of the external cause; Y99.8 Other external cause status

== ENCOUNTER → 2019-07-06 | Outpatient (CLI) | payer OTHER ==
[~2019-07-06] MED LIST changes: +ARTIFICIAL TEAR15 M6 OPHTHALMIC; +CLARITIN10 MG PO; +COZAAR 25 MG TA25 M1 PO; +DOXYCYCLINE 10100 MG PO; +FLONASE 0.05%50 MCG NASAL; +HURRICAINE TOP; +IBUPROFEN 200200 M1 PORT; +MUCINEX600 MG PO; +VICKS VAPORUB O50 GM EPIDURAL
== END ==
LOC: CAT 12:57
DX: L03.116 Cellulitis of left lower limb (principal); M16.12 Unilateral primary osteoarthritis, left hip

== ENCOUNTER 2020-04-28 20:00 | Inpatient (IN) | payer OTHER ==
[~2020-04-28] VITALS: Ht 175.3 cm; Wt 64.0 kg
[2020-04-28 20:03] VITALS: BP 88/58
[2020-04-28 21:25] LABS: HEMATOCRIT 40.4 % (42.0-52.0); HEMOGLOBIN 13.4 gm/dL (14.0-18.0); MCHC 33.2 g/dL (28.0-37.0); MCV 96.3 fL (80.0-100.0); PLATELET COUNT 233 thou/uL (150-400); RBC 4.19 mil/uL (4.50-6.00); RDW 13.3 % (10.5-14.5); WBC 31.7 thou/uL (4.0-11.0)
[2020-04-28 21:35] LABS: ANION GAP 11 mmol/L (7-16); BUN 31 mg/dL (7-18); CALCIUM 9.3 mg/dL (8.5-10.1); CHLORIDE 104 mmol/L (98-107); CO2 25 mmol/L (21-32); CREATININE 1.8 mg/dL (0.7-1.3); GLUCOSE 109 mg/dL (74-106); POTASSIUM 5.8 mmol/L (3.5-5.1); SODIUM 140 mmol/L (136-145)
[2020-04-28 21:45] LABS: TROPONIN-I <0.06 ng/mL (<0.06)
[2020-04-28 23:03] LABS: ABSOLUTE NEUTROPHILS 29.8 thou/uL (1.4-8.2); PLATELET ESTIMATE NORMAL
[2020-04-29 02:48] LABS: URINE BILIRUBIN 1+ (Negative); URINE BLOOD 2+ (Negative); URINE CLARITY SL CLOUDY; URINE COLOR YELLOW; URINE GLUCOSE-RANDOM* NEGATIVE (Negative); URINE KETONES 1+ (Negative); URINE LEUKOCYTES-REFLEX NEGATIVE (Negative); URINE NITRITE-REFLEX NEGATIVE (Negative); URINE PROTEIN (DIPSTICK) 1+ (Negative); URINE SPECIFIC GRAVITY 1.025 (1.005-1.035)
[2020-04-29 03:03] LABS: BACTERIA-REFLEX 1-9 Few /HPF (None Seen); CELLULAR CASTS 0-3 Few /LPF (None Seen); COARSE GRANULAR CASTS 0-3 Few /LPF (None Seen); HYALINE CASTS 0-3 Few /LPF (None Seen); SQUAMOUS 4-10 Moderate /LPF (0-3); URINE WBC-REFLEX 0-5 Rare /HPF (0-5)
[2020-04-29 04:40] LABS: HEMATOCRIT 38.6 % (42.0-52.0); HEMOGLOBIN 12.5 gm/dL (14.0-18.0); MCH 31.7 pg (26.0-34.0); MCHC 32.5 g/dL (28.0-37.0); MCV 97.4 fL (80.0-100.0); RBC 3.96 mil/uL (4.50-6.00); RDW 13.6 % (10.5-14.5); WBC 30.3 thou/uL (4.0-11.0)
[2020-04-29 04:44] LABS: CALCIUM 7.8 mg/dL (8.5-10.1); CREATININE 1.7 mg/dL (0.7-1.3); MAGNESIUM 1.4 mg/dL (1.8-2.4); POTASSIUM 5.3 mmol/L (3.5-5.1)
[2020-04-29 07:36] VITALS: BP 98/54
[2020-04-29 11:15] VITALS: BP 82/50
[2020-04-29 11:35] VITALS: BP 92/55
--- NOTE | 2020-04-29 13:26 | NUR ---
INITIAL ASSESSMENT: AIDAN reviewed chart and spoke with nursing. Pt was admitted from [facility] due to pneumonia/sepsis. Pt placed in Enhanced Isolation to r/o COVID-19. Pt is on IV abx and on O2. AIDAN spoke with Liliana at [facility], who states pt has tested negative twice at [facility]. Pt's test results are pending. AIDAN spoke with pt's , Sharon, via phone. Introduced role of AIDAN. Pt has lived at [facility] since September of 2017. 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 Pt is normally w/c bound at the facility and is able to stand and pivot transfer with 2 people assisting with a gait belt. Pt is not normally on O2 at the nursing facility. Plan is for pt to return to [facility] when medically stable. Pt would benefit from therapy evals when able to participate. AIDAN faxed clinical info to [facility] for review. AIDAN is following to assist as needed with discharge planning.
[2020-04-29 15:22] VITALS: BP 108/51
[2020-04-29 15:34] VITALS: BP 96/47
--- NOTE | 2020-04-29 16:03 | NUR ---
ASSUMED CARE APPROX 0700. ASSESSMENTS CHARTED AND VSS. SBP STABLE IN 90'S. FLUIDS INFUSING PER ORDERS. PT DENIES ACUTE PAIN. PT DENIES CHEST PAIN. PT ON 2LNC W/ NO SIGNS OF DISTRESS NOTED. PASSING FLATUS, BUT NO BM IN A FEW DAYS PER PT. WILL CONTACT DR. ESQUIVEL.
--- NOTE | 2020-04-29 18:02 | NUR ---
PT COVID RESULTS NEGATIVE. PT TO BE RESWABBED FOR COVID PER MARCIA ISRAEL.
[2020-04-29 19:39] VITALS: BP 93/58
[2020-04-30 00:07] LABS: GLYCOHEMOGLOBIN (HGB A1C) 5.4 % (4.8-5.6)
--- NOTE | 2020-04-30 00:13 | NUR ---
PT IS VERY SOFT SPOKEN, IT WAS DIFFICULT TO SPEAK WITH THE PATIENT AT THIS TIME. AT THE BEGINNING OF THE SHIFT THE TELE MONITOR APPEARED TO RUN A AFIB RHYTHM SO EKG WAS ORDERED, THE EKG SHOWED THAT THERE WEREN'T ANY AFIB PRESENT AT THIS TIME. PT VERBALIZED PAIN AT THE SITE OF R HEEL, PER REQUEST BOTH LOWER LEGS HAVE BEEN ELEVATED AND NOT TOUCHING THE BED. PT'S LUNG SOUNDS ARE SIMILAR, PT IS STILL RUNNING A LOWER BLOOD PRESSUER AT SBP <100, PT IS ABLE TO TURN SELF IN BED; THOUGH HE IS VERY WEAK. PT IS ABLE TO CALL FOR HELP APPROPERIATELY. PT IS STILL RUNNING NS AT 80ML/HR AND ABX. EKG PRESENTED RBBB/LAFB/ECTOPIC ATRIAL RHYTHM
[2020-04-30 01:20] VITALS: BP 110/71
[2020-04-30 03:52] VITALS: BP 111/75
[2020-04-30 05:14] LABS: CALCIUM 8.9 mg/dL (8.5-10.1); CREATININE 1.3 mg/dL (0.7-1.3)
[2020-04-30 06:08] LABS: HEMATOCRIT 36.6 % (42.0-52.0); HEMOGLOBIN 11.9 gm/dL (14.0-18.0); MCH 31.6 pg (26.0-34.0); MCHC 32.4 g/dL (28.0-37.0); MCV 97.6 fL (80.0-100.0); RBC 3.75 mil/uL (4.50-6.00); RDW 13.2 % (10.5-14.5); WBC 28.6 thou/uL (4.0-11.0)
[2020-04-30 07:42] VITALS: BP 110/72
--- NOTE | 2020-04-30 07:51 | EKG ---
[facility] [place] [address] ELECTROCARDIOGRAM REPORT Name: SAVANNA TORRES Room #: 350-P ADM IN M.R.#: [id number] Admission: 04/28/20 Attend Phys: Deepak Garcia MD Discharge: Date of : 41 Report #: [id number] THIS REPORT FOR: cc: Los Jc,Rafael Davis MD [facility] ~ THIS REPORT FOR: //name// [facility] ED Test Date: 2020-04-28 Test Time: 20:58:18 Pat Name: SAVANNA TORRES Department: Room: 350 Gender: M Purchasing Engineer: no : 1945 Requested By: Jerry Schneider Order Number: [id number] MD: Rafael Charles Measurements Intervals [place] Rate: 101 P: -81 OR: 226 QRS: -60 QRSD: 134 T: 14 QT: 344 QTc: 446 Interpretive Statements Sinus tachycardia Prolonged OR interval Nonspecific IVCD with LAD Baseline wander in lead(s) V2 Compared to ECG 09/24/2017 12:20:44 No significant change was found Electronically Signed On 04-30-2020 7:51:27 CDT by Rafael Charles [email or web address] <ELECTRONICALLY SIGNED> By: Rafael Charles MD, FAC 04/30/20 0751 57 57 Rafael Charles MD, FAC /EPI
--- NOTE | 2020-04-30 08:02 | EKG ---
[facility] [place] [address] ELECTROCARDIOGRAM REPORT Name: SAVANNA TORRES Room #: 350-P ADM IN M.R.#: [id number] Admission: 04/28/20 Attend Phys: Deepak Garcia MD Discharge: Date of : 43 Report #: [id number] THIS REPORT FOR: cc: Los Jc,Los Moseely,Rafael Campos MD [facility] ~ THIS REPORT FOR: //name// [facility] Test Date: 2020-04-29 Test Time: 21:49:50 Pat Name: SAVANNA TORRES Department: Room: 350 P Gender: M Cow Tender: CARYL : 1945 Requested By: Anali Richardson Order Number: [id number] MD: Rafael Charles Measurements Intervals [place] Rate: 90 P: 9 OH: 230 QRS: -71 QRSD: 132 T: 31 QT: 404 QTc: 495 Interpretive Statements Sinus rhythm Sinus pause Prolonged [place] interval Nonspecific IVCD with LAD Compared to ECG 04/28/2020 20:58:18 No significant change was found Electronically Signed On 04-30-2020 8:02:45 CDT by Rafael Charles [email or web address] <ELECTRONICALLY SIGNED> By: Rafael Charles MD, [facility] 04/30/20 0802 48 48 Rafael Charles MD, [facility] /EPI
[2020-04-30 11:30] VITALS: BP 122/69
--- NOTE | 2020-04-30 13:49 | EKG ---
[facility] [place] [address] ELECTROCARDIOGRAM REPORT Name: SAVANNA TORRES Room #: 350-P ADM IN M.R.#: [id number] Admission: 04/28/20 Attend Phys: Deepak Garcia MD Discharge: Date of : 41 Report #: [id number] THIS REPORT FOR: cc: Los Jc Steven F. DO Couchonnal, Luis F. MD ~ THIS REPORT FOR: //name// [facility] Test Date: 2020-04-29 Test Time: 21:50:27 Pat Name: SAVANNA TORRES Department: Room: 350 P Gender: M Topographic Computator: CARYL : 1945 Requested By: Deepak Garcia Order Number: [id number] MD: Angel Dupont Measurements Intervals [place] Rate: 94 P: -24 MN: 223 QRS: -71 QRSD: 132 T: 34 QT: 395 QTc: 495 Interpretive Statements Sinus rhythm Prolonged MN interval Nonspecific IVCD with LAD Compared to ECG 04/29/2020 21:49:50 Electronically Signed On 04-30-2020 13:49:11 CDT by Angel Dupont [email or web address] <ELECTRONICALLY SIGNED> By: Angel Dupont MD 04/30/20 1349 49 49 Angel Dupont MD /EPI
[2020-04-30 15:34] VITALS: BP 114/70
--- NOTE | 2020-04-30 15:40 | NUR ---
AIDAN reviewed chart and spoke with nursing and attending physiican. Pt has had two negative COVID tests. Pt will transfer off of 3W when a bed becomes available. Pt is afebrile. Remains on O2 and IV abx. AIDAN spoke with DELPHINE Palomares at [facility], to provide update. AIDAN spoke with pt's via phone to provide update. Pt's is anxiously awaiting pt to transfer off of 3W, so she can come visit pt. She has not seen him since the visitor restrictions were put into place at the nursing facility. Pt's asked about pt's son coming to visit from [place]. AIDAN explained that the visitor policy is that pt can only have one designated visitor per hospital stay. Pt's asked who to speak with to see if they can make an exception. AIDAN provided pt's with main hospital number and to discuss with distribution warehouse manager. AIDAN updated distribution warehouse manager. AIDAN is following to assist as needed with discharge planning.
--- NOTE | 2020-04-30 16:55 | NUR ---
ASSUMED CARE OF PT AT 0700. PT COMPLAINS OF BACK PAIN AND PAIN TO MEATUS FROM HERNANDEZ. HERNANDEZ NOTED TO BE LEAKING. INSTRUCTED TO CHANGE BY PHYSICIAN. AFTER EXCHANGING FOR SAME SIZE HERNANDEZ - HERNANDEZ STILL LEAKING. NOW PATIENT SAYS HE IS UNABLE TO TOLERATE ANOTHER HERNANDEZ PLACEMENT - WILLING TO TRY AGAIN LATER TONIGHT. DC PRECAUTIONS PER ID. ANTICIPATE TRANSFER PENDING BED AVAILABILITY.
[2020-04-30 20:19] VITALS: BP 123/73
[2020-05-01 03:27] VITALS: BP 108/70
--- NOTE | 2020-05-01 03:37 | NUR ---
ASSUMED PT CARE AT 1900. PT IS A&OX4 TONIGHT. C/O PAIN TO CATHETER INSERTION SITE, PT IS REFUSING TO HAVE A NEW ONE PLACED AT THIS TIME. URINE IS BLOOD TINGED, BUT HAS GOOD OUTPUT. PT OCCASSIONALLY REFUSING Q2 TURNS, C/O OF BOTTOM BEING SORE AND FINALLY ALLOWED TO BE TURNED FULLY ON NEW SIDE, BARRIER CREAM APPLIED. C/O RESTLESS LEGS EARLIER, GOT REQUIP STARTED FOR AM. FLUIDS & ANTIBIOTICS INFUSING PER ORDER. PT ANTICIPATING TRANSFER HOPEFULLY TOMORROW. WILL CONTINUE TO MONITOR.
[2020-05-01 05:53] LABS: HEMATOCRIT 36.8 % (42.0-52.0); MCH 32.2 pg (26.0-34.0); MCHC 32.7 g/dL (28.0-37.0); MCV 98.5 fL (80.0-100.0); RBC 3.74 mil/uL (4.50-6.00); RDW 13.8 % (10.5-14.5); WBC 22.8 thou/uL (4.0-11.0)
[2020-05-01 05:58] LABS: CALCIUM 8.5 mg/dL (8.5-10.1); POTASSIUM 4.4 mmol/L (3.5-5.1)
[2020-05-01 07:52] VITALS: BP 119/90
[2020-05-01 08:42] VITALS: BP 112/67
--- NOTE | 2020-05-01 13:15 | NUR ---
AIDAN reviewed chart and spoke with nursing. Pt has had two negative COVID tests and transferred to 4W from 3W earlier today. AIDAN spoke with pt's via phone to provide update. Pt's states that their son will be visiting pt tomorrow. Pt's asked about additional visitors. SW explained that pt's are allowed one designated visitor for the duration of the hospital stay. Pt's verbalized understanding. SW updated [facility], who states they will require an additonal/updated COVID test prior to discharge. Pt's last negative test was on 04/29. SW updated attending physician to request a COVID test to be ordered tomorrow. Plan is for pt to return to [facility] when medically stable. AIDAN is following to assist as needed with discharge planning.
[2020-05-01 16:24] VITALS: BP 120/75
--- NOTE | 2020-05-01 20:06 | NUR ---
Pt transfered from [facility] per bed at 0845 in stable condition.Assessment completed. vss.Pt appeared to be needy and calls out at alltimes.Emotional support and reassurance given as needed.Pt c/o lower back pain. Hydrocodone given as ordered with relief.Assisted pt with feeding. Fair appetite noted. Pt c/o sarmiento cath irritation and wanted it out.Dr Garcia notified,order noted. Sarmiento cath dc'd later this evening around 1700.Will continue to monitor.
[2020-05-01 20:30] VITALS: BP 126/83
--- NOTE | 2020-05-02 03:05 | NUR ---
patient aox4 makes needs known. patient turned q 2 hours. patient request muscle rub and sleeping meds called college scouting coordinator new orders written. patient had blood in the urine x2 college scouting coordinator notified d/t patient pulling off catheter and causing truma order to monitor patient and notify in the am if bleeding dont stop. patient in bed asleep no s/s of pain or discomfort. fall precaution in place. patient in bed asleep at this time breathing regular and unlaboured.
[2020-05-02 08:25] VITALS: BP 131/80
[2020-05-02 12:29] LABS: ABSOLUTE NEUTROPHILS 14.5 thou/uL (1.4-8.2); BASOPHILS 0.2 % (0.0-2.0); HEMATOCRIT 39.3 % (42.0-52.0); HEMOGLOBIN 12.8 gm/dL (14.0-18.0); LYMPHOCYTES 5.7 % (24.0-44.0); MCH 31.9 pg (26.0-34.0); MCHC 32.4 g/dL (28.0-37.0); MCV 98.4 fL (80.0-100.0); MONOCYTES 3.9 % (1.0-8.0); PLATELET COUNT 198 thou/uL (150-400); POLYS 90.2 % (36.0-66.0); RDW 13.8 % (10.5-14.5); WBC 16.1 thou/uL (4.0-11.0)
[2020-05-02 12:38] LABS: CALCIUM 8.9 mg/dL (8.5-10.1); CREATININE 0.8 mg/dL (0.7-1.3); POTASSIUM 4.4 mmol/L (3.5-5.1)
--- NOTE | 2020-05-02 14:07 | NUR ---
FAXED CLINICAL UPDATE TO [facility] SPOKE WITH SARABJIT IN ADM SHE RECEIVED UPDATE ALSO LET HER KNOW THAT PT SHOULD DC TOMORROW SHE WILL NOTIFY THE UNIT THAT PT WILL BE ON. IF PT DISCHARGES OVER WEEKEND PLEASE FAX TO [phone] AND CALL [phone] TO SCHEDULE TRANSPORT.
--- NOTE | 2020-05-02 15:24 | NUR ---
CARE TEAM INDICATED THAT PT WILL LIKELY BE MEDICALLY STABLE TO DC BACK TO [facility] TOMORROW SATUDAY 05/03/20. PT'S SPOUSE WOULD PREFER TRANSPORT BE ARRANGED AROUND 1400 IF POSSIBLE VANGIE PT'S SON FROM OUT OF TOWN CAN VISIT PT IN EARLY AM. CLINICAL UPDATED HAD BEEN SENT TO [facility] AND THEY WERE NOTIFIED OF ANTICIPATED DC TOMORROW. PLEASE CONTACT TO ARRANGE TRANSPORT AND FAX ORDERS TO . CALL REPORT TO .
[2020-05-02 16:28] VITALS: BP 120/78
--- NOTE | 2020-05-02 20:17 | NUR ---
Assumed patient care at 0715. Vital signs stable, LSCTA, BS x's 4, ABD soft and non-tender, skin is clean, warm, dry and intact. Patient requested and received Hydrocodone 5/325mg po at 0951 for "level ten" bilateral shoulder pain. He reported minimal relief from this but, did not appear to be in anymore pain. Son, Lon is in town from [place]. He visited his dad for quite awhile today. Patient has been smiling, has been resting quietly with his eyes closed since he left. Son is new Designated Visitor, as he stated "my mom cant come to see him right now." Son is to visit at approximately 0900 tomorrow. Report given to on-coming nurse.
[2020-05-02 20:45] VITALS: BP 127/84
--- NOTE | 2020-05-03 03:14 | NUR ---
PATIENT AOX4 MAKES NEEDS KNOWN. PATIENT USES URINAL. URINE IS YELLOW IN COLOR NO ODOR. PATIENT TURNED Q 2 HOURS. PATIENT ENCOURAGED FLUIDS.PAIN CONTROLLED THIS SHIFT.PATIENT IN BED ASLEEP AT THIS TIME BREATHING REGULAR AND UNLABOURED.
[2020-05-03 08:18] VITALS: BP 148/88
[2020-05-03 11:12] LABS: BASOPHILS 0.1 % (0.0-2.0); EOSINOPHILS 0.1 % (0.0-3.0); HEMATOCRIT 37.2 % (42.0-52.0); HEMOGLOBIN 12.3 gm/dL (14.0-18.0); MCH 32.4 pg (26.0-34.0); MCV 98.1 fL (80.0-100.0); MONOCYTES 6.9 % (1.0-8.0); PLATELET COUNT 192 thou/uL (150-400); POLYS 86.9 % (36.0-66.0); RBC 3.79 mil/uL (4.50-6.00); RDW 13.8 % (10.5-14.5); WBC 10.4 thou/uL (4.0-11.0)
[2020-05-03 11:19] LABS: CALCIUM 8.6 mg/dL (8.5-10.1); CREATININE 0.9 mg/dL (0.7-1.3); POTASSIUM 4.1 mmol/L (3.5-5.1)
[2020-05-03 15:44] VITALS: BP 149/83
--- NOTE | 2020-05-03 19:47 | NUR ---
Assumed pt care at 7am.Assessment completed.vss. Dr Garcia here early this shift infromed pt that he will be staying in hospital till tuesday before dc to [facility] home.Family and [facility] facility informed.Pt c/o bilateral shoulder pain and hydrocodone given as ordered with relief.Pt frequently calls out but sometimes forgetful when asked for needs.Assisted with feeding at all meals,but pt has poor appetite.It appeared that he hate pureed diet but loves pudding.Report off to joaquin rn.
[2020-05-03 21:44] VITALS: BP 151/100
--- NOTE | 2020-05-04 05:27 | NUR ---
RECIEVED CARE OF THIS PATIENT AT 1900. PATIENT ORIENTED TO PERSON AND PLACE. ACCUCHECK WAS 159, RECIEVED 3UNITS LISPRO INSULIN FOR COVERAGE. C/O PAIN MED GIVEN. MEDS CRUSHED AND GIVEN IN APPLESAUCE. IV IN CAMRYN PATENT WITH FLUIDS INFUSING. SLEPT MOST OF THE NIGHT.
[2020-05-04 07:42] LABS: HEMATOCRIT 36.3 % (42.0-52.0); HEMOGLOBIN 11.9 gm/dL (14.0-18.0); MCH 31.9 pg (26.0-34.0); MCHC 32.7 g/dL (28.0-37.0); MCV 97.3 fL (80.0-100.0); RBC 3.73 mil/uL (4.50-6.00); RDW 13.6 % (10.5-14.5); WBC 8.3 thou/uL (4.0-11.0)
[2020-05-04 07:49] LABS: CALCIUM 8.6 mg/dL (8.5-10.1); CREATININE 0.7 mg/dL (0.7-1.3); POTASSIUM 3.9 mmol/L (3.5-5.1)
[2020-05-04 08:29] VITALS: BP 147/92
[2020-05-04 15:31] VITALS: BP 129/71
--- NOTE | 2020-05-04 16:43 | NUR ---
ASSUMED PT CARE AT 0700. PT ALERT X ORIENTED X 3. ON ROOM AIR. IV RT UPPER ARM. PUREED DIET AND NECTAR THICK LIQUID. ACCUCHECKS. NO SCD'S ON. PATIENT'S SON IN THE ROOM . PAIN SHOULDER PARTIALLY RELIEVED BY PAIN MEDS. CALL LIGHT IN REACH. FALL PRECT IN PLACE. WILL CONT TO MONITOR.
[2020-05-04 19:27] VITALS: BP 150/88
--- NOTE | 2020-05-05 01:35 | NUR ---
ASSUMED CARE OF PT AT APPROXIMATELY 1900. PT IS A/O X4. C/O WANTING MORE SLEEP, AND ALSO MUSCLE CRAMPING TO HIS LEFT LEG. PRN SLEEP MEDICATION AND MUSCLE ACHES AND PAIN CREAM PROVIDED DIRECTED. ALSO, REPOSITIONED AND ELEVATED LEFT LEG. PT IS NOW LAYING IN HIS BED AWAKE LISTENING TO MUSIC ON HIS CELL PHONE. FALL PRECAUTIONS ARE IN PLACE, CALL LIGHT IS WITHIN REACH. WILL CONTINUE TO MONITOR.
[2020-05-05 06:24] LABS: HEMATOCRIT 38.1 % (42.0-52.0); HEMOGLOBIN 12.7 gm/dL (14.0-18.0); MCH 32.3 pg (26.0-34.0); MCHC 33.2 g/dL (28.0-37.0); MCV 97.2 fL (80.0-100.0); RBC 3.92 mil/uL (4.50-6.00); RDW 13.5 % (10.5-14.5); WBC 8.5 thou/uL (4.0-11.0)
[2020-05-05 06:34] LABS: CREATININE 0.8 mg/dL (0.7-1.3); POTASSIUM 3.8 mmol/L (3.5-5.1)
[2020-05-05 07:22] VITALS: BP 127/79
--- NOTE | 2020-05-05 13:15 | NUR ---
PT'S SPOUSE HAD CALLED AND LEFT VM EXPRESSING FRUSTRATION ABOUT LACK OF COMMUNICATION OVER THE WEEKEND. LAST CM HAD SPOKEN TO HER TUESDAY AFTERNOON 05/02. A DC BACK TO THE FACILITY TUESDAY AROUND 1400 HAD BEEN ANTICIPATED. CM APOLOGIZED REGARDING LACK O F COMMUNICATION. SHE INDICATED THAT SHE HAD ONLY FOUND OUT THAT PT WAN'T DISHCHARGING TUESDAY FROM HER SON WHO WAS IN THE ROOM WHEN PHYSICIAN ROUNDED BUT THAT THEY DIDN'T INDICATE TO HIM WHY PT WASN'T READY FOR DISHCARGE. CM SPOKE WITH PHYSICIAN THIS AM AND THEN AGAIN THIS AFTERNOON HE INDICATES DC IS ANTICPATED BACK TO [facility] TODAY BUT THAT WE ARE WAITING ON FINAL ID RECS. CM CONVEYED THIS TO PT'S SPOUSE WHICH SEEMED TO PROVIDE HER SOME COMFORT. CM TO CALL HER AND LET HER KNOW SOON WE HAVE FINAL ABX RECS AND ORDERS IN PLACE. CM TO FOLLOW INDICATED WITH DC PLANNING.
--- NOTE | 2020-05-05 14:11 | NUR ---
FAXED COVID RESULTS TO [facility] SPOKE WITH SARABJIT IN ADM SHE RECEIVED RESULTS..
[2020-05-05] MEDS ORDERED: IPRAT-ALBUT 0.5-3 ML INH (14:18)
[2020-05-05] MEDS ORDERED: PREDNISONE 10 M10 M1 PO (14:21)
[2020-05-05] MEDS ORDERED: AUGMENTIN 875-1 EACH PO (14:23)
[2020-05-05 15:16] VITALS: BP 146/88
--- NOTE | 2020-05-05 15:48 | NUR ---
CARE TEAM INDICATED THAT PT IS MEDICALLY STABLE TO RETURN BACK TO [facility] THIS DAY. [facility]SP[facility] ARRAGNED FOR [phone]. CHART COPY ORDERED. ORDERS FAXED. CM CALLED AND NOTIFIED PT'S . SHE IS AWARE AND AGREEABLE. REPORT TO BE CALLED TO . NURSE TO NOTIFY PT'S SON WHO IS AT BEDSIDE. NO OTHER CM INTERVENTION INDICATED. CASE CLOSED.
--- NOTE | 2020-05-05 18:40 | NUR ---
ASSUMED PT CARE AT 0700. T ALERT X ORIENT X 3-4. ON ROOM AIR. iV ON RT UPPER ARM. ON PUREED DIET. ACHS. PT'S SON OIN THE ROOM. NURSE TALKED TO PT'S . PT GETTING DISCHARGED TO [facility]. PT IS TRANSFERRED USING LIFTING DEVICE. 2 PERSON ASST AND CAN PIVOT FROM BED TO CHAIR. PAIN CONTROLLED BY TYLENOL AND HYDROCODONE. RN CALLED THE FACILITY AND GAVE REPORT. IT WAS SAID THAT THE TRANSPORTATION WILL BE HERE BETWEEN 6 AND 630 PM. WILL CONT TO MONITOR. PT NOT EATING AND DRINKING MUCH.
== END 2020-05-05 20:19 | DRG 871 ==
LOC: ER 20:00 → EROBS 22:22 → 3W 22:22 → 4W 05-01 08:48
PROVIDERS: Emergency Medicine; Nurse Practitioner Family; Pediatrics; ADMIT Hospitalist; ATTEND Hospitalist
DX: A41.9 Sepsis, unspecified organism (principal); J18.9 Pneumonia, unspecified organism; J96.01 Acute respiratory failure with hypoxia; N17.9 Acute kidney failure, unspecified; L03.116 Cellulitis of left lower limb; M31.9 Necrotizing vasculopathy, unspecified; G82.20 Paraplegia, unspecified; E87.0 Hyperosmolality and hypernatremia; J91.8 Pleural effusion in other conditions classified elsewhere; I69.354 Hemiplegia and hemiparesis following cerebral infarction affecting left non-dominant side; J44.0 Chronic obstructive pulmonary disease with (acute) lower respiratory infection; Z20.828 Contact with and (suspected) exposure to other viral communicable diseases; E78.00 Pure hypercholesterolemia, unspecified; I10 Essential (primary) hypertension; R65.20 Severe sepsis without septic shock; Y95 Nosocomial condition; N40.0 Benign prostatic hyperplasia without lower urinary tract symptoms; I87.8 Other specified disorders of veins; D72.823 Leukemoid reaction; I87.2 Venous insufficiency (chronic) (peripheral); R13.10 Dysphagia, unspecified; Z87.81 Personal history of (healed) traumatic fracture; Z87.891 Personal history of nicotine dependence; Z82.49 Family history of ischemic heart disease and other diseases of the circulatory system; Z79.899 Other long term (current) drug therapy; Z99.81 Dependence on supplemental oxygen
CPT/HCPCS: 10047; 10879

== ENCOUNTER 2020-09-13 00:26 | Emergency (ER) | payer OTHER ==
[~2020-09-13] VITALS: Ht 167.6 cm; Wt 63.5 kg
[~2020-09-13 00:26] MED LIST changes: +AUGMENTIN 875-1 EACH PO; +IPRAT-ALBUT 0.5-3 ML INH; +PREDNISONE 10 M10 M1 PO
[2020-09-13 01:06] LABS: ABSOLUTE NEUTROPHILS 6.8 thou/uL (1.4-8.2); BASOPHILS 0.2 % (0.0-2.0); EOSINOPHILS 0.3 % (0.0-3.0); HEMATOCRIT 34.1 % (42.0-52.0); HEMOGLOBIN 11.4 gm/dL (14.0-18.0); LYMPHOCYTES 12.9 % (24.0-44.0); MCH 31.6 pg (26.0-34.0); MCHC 33.3 g/dL (28.0-37.0); PLATELET COUNT 151 thou/uL (150-400); POLYS 78.6 % (36.0-66.0); RBC 3.59 mil/uL (4.50-6.00); RDW 16.1 % (10.5-14.5); WBC 8.6 thou/uL (4.0-11.0)
[2020-09-13 01:09] LABS: BE(vivo) 1.8 mmol/L (-2 to +3); HCO3 26.9 mmol/L (22.0-26.0); PO2 69.8 mmHg (80.0-100.0); pH 7.404 (7.360-7.450)
[2020-09-13 01:29] LABS: APTT 27.4 Seconds (24.5-32.8); INR 1.1; PROTIME 11.7 Seconds (9.3-11.4)
[2020-09-13 02:50] LABS: ANION GAP 10 mmol/L (7-16); BUN 14 mg/dL (7-18); CALCIUM 8.5 mg/dL (8.5-10.1); CHLORIDE 108 mmol/L (98-107); CO2 27 mmol/L (21-32); CREATININE 0.6 mg/dL (0.7-1.3); GLUCOSE 65 mg/dL (74-106); POTASSIUM 3.8 mmol/L (3.5-5.1); SODIUM 145 mmol/L (136-145)
[2020-09-13 03:00] LABS: ALBUMIN 2.3 g/dL (3.4-5.0); MAGNESIUM 1.6 mg/dL (1.8-2.4); SGOT 20 U/L (15-37); SGPT 10 U/L (30-65); TOTAL BILIRUBIN 0.5 mg/dL (0.2-1.0); TOTAL PROTEIN 5.8 g/dL (6.4-8.2); TROPONIN-I <0.06 ng/mL (<0.06)
[2020-09-13 04:34] VITALS: BP 119/83
--- NOTE | 2020-09-15 07:19 | EKG ---
[facility] [address] [place] [address] ELECTROCARDIOGRAM REPORT Name: SAVANNA TORRES Room #: [facility] Crispin#: [id number] Admission: 09/13/20 Attend Phys: Discharge: 09/13/20 Date of : 41 Report #: [id number] <ELECTRONICALLY SIGNED> By: Neymar Fraga MD, FACC 09/15/20 0719 Neymar Fraga MD, FACC /EPI
== END 2020-09-13 04:40 | disposition home or self-care (01) ==
LOC: ER 00:26
PROVIDERS: Emergency Medicine
DX: I69.859 Hemiplegia and hemiparesis following other cerebrovascular disease affecting unspecified side (principal); I10 Essential (primary) hypertension; E11.9 Type 2 diabetes mellitus without complications; E78.5 Hyperlipidemia, unspecified; Z98.818 Other dental procedure status; Z87.891 Personal history of nicotine dependence; Z79.899 Other long term (current) drug therapy; Z20.828 Contact with and (suspected) exposure to other viral communicable diseases